=== PATIENT | male | born 1965 | race Caucasian/White ===

== ENCOUNTER 2019-04-01 09:14 | Day surgery (SDC) | payer OTHER, SELFPAY ==
[2019-04-01] MEDS: SODIUM CHLORIDE 0.9% 1,000 ML 200 ML IV (09:51)
[2019-04-01 09:53] VITALS: BP 143/90; PULSE 94; RESP 16; TEMP 36.6; O2SAT 98; BMI 25.9
--- NOTE | 2019-04-01 10:19 | SUR.PREOP ---
PT IS GOING TO HOTEL BY [facility] AFTER PROCEDURE, DR GONZALES IS AWARE AND STATES HE WILL PUT A NOTE ON THIS IN HIS HISTORY AND PHYSICAL NOTE.
--- NOTE | 2019-04-01 10:30 | PM.HP.1 ---
History of Present Illness History of Present Illness Date Patient Seen: 04/01/19 Time Patient Seen: 10:30 Chief complaint: [id number] SCREENING COLONOSCOPY Narrative: Patient is a gentleman here for his 1st colonoscopy. No family history of colon cancer. Patient History Medical History (Updated 04/01/19 @ 10:31 by Braxton Martell MD) Diabetes mellitus (Acute) History of deviated nasal septum (Acute) Family & Social History Social History: household members none Tobacco & Substance use: Smoking Status Never smoker alcohol intake current alcohol intake frequency a few times a week Meds Home Medications and Allergies Home Medications Medication Instructions Recorded Confirmed Type atorvastatin 20 mg PO BEDTIME 04/01/19 04/01/19 History dulaglutide [Trulicity] 0.75 mg SUBCUT QWEEK 04/01/19 04/01/19 History metformin 500 mg PO QID 04/01/19 04/01/19 History Allergies Allergy/AdvReac Type Severity Reaction Status Date / Time No Known Drug Allergies Allergy Verified 04/01/19 09:41 Review of Systems Review of Systems ROS Unobtainable: All systems reviewed & are unremarkable except as noted in HPI and below Exam Vital Signs (past 8 hours): - 04/01/19 09:53 Temperature 97.9 F Pulse Rate 94 H Respiratory Rate 16 Blood Pressure 143/90 H Pulse Oximetry 98 Oxygen Delivery Method Room Air Narrative Exam Narrative: Pleasant cooperative patient no apparent distress. Lungs are clear to auscultation. No rales or rhonchi. Heart regular rate and rhythm no murmur gallop. Abdomen is soft nontender without mass. Small nontender umbilical hernia easily reducible. Patient is unaware he had it.. Patient is alert and oriented x3. Assessment & Plan Assessment & Plan narrative: The patient for a screening colonoscopy. I have discussed the procedure with them. Risks of bleeding, perforation which would necessitate major operation, failure to find remove all lesions, the potential tattoo were all discussed. All questions were answered. They wished to proceed.
[2019-04-01] MEDS: MIDAZOLAM 5 MG/5 ML VIAL IV (10:58)
--- NOTE | 2019-04-01 10:59 | PM.OP.ENDO ---
Operative Date/Time/Diagnoses Date of procedure: 04/01/19 Time of procedure: 10:59 Pre-op diagnosis: Screening exam. This is his 1st colonoscopy. Post-op diagnosis: same (Diverticulosis sigmoid colon) Procedure & Clinicians Study performed: Colonoscopy Same procedure as scheduled: Yes Indications: Screening Surgeon: Braxton Martell Procedure Notes SCOAP/Timeout: Performed Procedure in detail: The patient was placed in the left lateral decubitus position and underwent IV sedation directed by the surgeon consisting of fentanyl and Versed. Digital exam was normal. Prostate is flat. Patient did have some tags from external hemorrhoidal disease in his perianal skin. Also his sphincter is a little tight.. The scope was inserted and advanced through the rectum into the sigmoid, descending, transverse, and ascending colon. Patient was noted to have diverticulosis in the sigmoid colon. There was no stricture.. The cecum was reached identified by the ileocecal valve and the appendiceal opening. The ileocecal valve was successfully cannulated. The terminal ileum was normal in appearance. The scope was gradually brought out. No Polyps were found. The scope ultimately was retroflexed in the rectum. The appearance was normal. The scope was removed and the patient tolerated the procedure well. Prep was very good Scope withdrawal time: 7-1/2 minutes Sedation minutes: 20 Findings: diverticulosis (Sigmoid) Specimen(s): none sent Complications: none Post-procedure Recommendations: Colonscopy in 10 years Follow up: as needed Disposition: PACU
[2019-04-01] MEDS: fentaNYL 250 MCG/5 ML INJ IV (11:00)
[2019-04-01 11:02] VITALS: BP 89/60; PULSE 94; RESP 18; TEMP 36.5; O2SAT 95
[2019-04-01 11:07] VITALS: BP 133/93; PULSE 85; RESP 16; O2SAT 96
[2019-04-01 11:11] VITALS: BP 133/92; PULSE 89; RESP 14; O2SAT 96
[2019-04-01 11:18] VITALS: BP 131/92; PULSE 90; RESP 14; TEMP 36.2; O2SAT 96
[2019-04-01 11:30] VITALS: BP 124/83; PULSE 78; RESP 18; O2SAT 98
--- NOTE | 2019-04-01 11:35 | SUR.PHASEII ---
pt to go back to his hotel in a taxi. RN will call when pt is totally ready. Dr. Martell okayed pt to go back to his hotel in a [employer] cab. Pt denies any complaints and states he is ready to go. pt is awake and alert and has had 3 v-8s to drink states he feels fine and ready to go. Discharge instructions given to pt and placed in a purple envelope.
--- NOTE | 2019-04-01 11:40 | SUR.PHASEII ---
Called [facility] and it will be20 minutes before they can get here. Will take pt out in approximately 20 minutes.
--- NOTE | 2019-04-01 11:55 | SUR.PHASEII ---
pt discharged in wheel chair to emergency room entrance and volunteer Sandra will make sure pt gets into taxi.
== END 2019-04-01 11:56 | disposition home or self-care (01) ==
PROVIDERS: PCP Family Medicine; Visit Provider Specialist
PROC: 0DJD8ZZ Inspection of Lower Intestinal Tract, Via Natural or Artificial Opening Endoscopic (ICD-10-PCS; CPT 45378; principal; 2019-04-01 10:45)
DX: Z12.11 Encounter for screening for malignant neoplasm of colon (principal); E11.9 Type 2 diabetes mellitus without complications; Z79.84 Long term (current) use of oral hypoglycemic drugs; K57.30 Diverticulosis of large intestine without perforation or abscess without bleeding
CPT/HCPCS: 45378; 99152; J2250; J3010

== ENCOUNTER → 2022-09-27 10:58 | Outpatient (CLI) | payer OTHER, SELFPAY ==
--- NOTE | 2022-09-27 11:02 | DI.RAD.S_ITS ---
PROCEDURE: XR SHOULDER LT MIN 2V INDICATIONS: Pain in left shoulder TECHNIQUE: Three views of the shoulder were acquired. COMPARISON: None. FINDINGS: Bones: No fracture, dislocation, or shoulder separation. There is mild to moderate spur formation in the acromioclavicular joint. No significant glenohumeral joint degeneration. The visible rib arcs are intact. No suspicious bone lesions. Soft tissues: No suspicious soft tissue calcifications. IMPRESSION: 1. No acute findings. 2. Moderate AC joint degeneration. Dictated by: Samantha Garcia M.D. on 09/27/2022 at 15:54 Approved by: Samantha Garcia M.D. on 09/27/2022 at 15:55
== END ==
PROVIDERS: PCP Family Medicine; Referring Provider Family Medicine; Visit Provider Family Medicine
DX: M19.012 Primary osteoarthritis, left shoulder (principal); M25.512 Pain in left shoulder
CPT/HCPCS: 73030

== ENCOUNTER → 2024-06-07 13:57 | Outpatient (CLI) | payer OTHER, SELFPAY ==
--- NOTE | 2024-06-07 13:59 | DI.US.S_ITS ---
PROCEDURE: US INJECTION TENDON SHEATH INDICATIONS: Bicipital tendinitis TECHNIQUE: The indications, alternatives, benefits, risks, and complications of the procedure were explained to the patient. Written informed consent was obtained and placed in the chart. The patient was placed in an appropriate position on the fluoroscopy table, and a site was chosen for percutaneous access under ultrasound guidance. Local anesthetic was administered using a 1% lidocaine solution. A hypodermic or spinal needle was then used to access the symptomatic joint. Intra-articular location of the needle tip was confirmed by real time ultrasound imaging, followed by steroid administration. The needle was then withdrawn, and a bandage applied to the puncture site. COMPARISON: None. FINDINGS: Joint injected: Left bicep tendon Medications injected: 4 mL of 40 mg/mL Kenalog and 0.5% Ropivacaine mixture. Patient's pain before injection: 5 of 10. Patient's pain after injection: 5 of 10. Complications: None. IMPRESSION: Successful ultrasound guided administration of steroid and anaesthetic solution into the left bicep tendon. Dictated by: Greta Felder M.D. on 06/12/2024 at 22:13 Approved by: Greta Felder M.D. on 06/12/2024 at 22:14
== END ==
PROVIDERS: PCP Family Medicine; Referring Provider Family Medicine; Visit Provider Radiology Neuroradiology
DX: M75.22 Bicipital tendinitis, left shoulder (principal)
CPT/HCPCS: 20550; 76942